=== PATIENT | male | born 1970 | race Caucasian/White ===

== ENCOUNTER 2017-01-11 20:47 | Emergency (ER) | payer BC, OTHER ==
[2017-01-11] MEDS ORDERED: Sodium Chloride 0.9% 2.5 ML Syringe FLUSH PRN (21:30)
[2017-01-11] MEDS ORDERED: Sodium Chloride 0.9% 10 ML Syringe FLUSH PRN (21:30)
--- NOTE | 2017-01-11 21:33 | EDM.PDOC ---
ED HPI GENERAL MEDICAL PROBLEM - General Chief Complaint: Neuro Symptoms/Deficits Stated Complaint: PT FEEL LIGHTHEADED AND DIZZY Time Seen by Provider: 01/11/17 21:23 - History of Present Illness INITIAL COMMENTS - FREE TEXT/NARRATIVE: HISTORY AND PHYSICAL: History of present illness: The patient is a 46-year-old male with a history of hypertension who follows the [facility] and presents with an episode of left shoulder pain and tingling to his left hand up his forearm. Patient states this started approximately an hour and 15 minutes ago and was not associated with any headache neck pain chest pain shortness of breath nausea or vomiting. He never had any trouble speaking thinking or swallowing and has no weakness in the left arm. The patient states that initially he just didn't feel right and he felt very lightheaded like he might pass out he was driving the car so he pulled to the side. He then felt the discomfort in his anterior left shoulder which did not radiate and the tingling in his left hand which radiated proximally to the level of his elbow but not further. He currently states that both the discomfort in his shoulder and the tingling in his left hand and forearm are improved. He had no other extremity pain or neurosensory changes and no other systemic complaints. The patient states it is similar episode happened to him about a year and a half ago and he was seen at another ER and told that everything was okay and did not followup with his provider at that time nor does she necessarily know about that episode. Patient had a normal day earlier and eat fine and had not systemic complaints. Patient currently does not feel lightheaded or dizzy but he does state that he doesn't feel quite right. Patient says he always has neck pain that radiates to her shoulders but does seem to be somewhat different. Review of systems: As per history of present illness and below otherwise all systems reviewed and negative. Past medical history: As per history of present illness and as reviewed below otherwise noncontributory. Surgical history: As per history of present illness and as reviewed below otherwise noncontributory. Social history: No reported history of drug or alcohol abuse. Family history: As per history of present illness and as reviewed below otherwise noncontributory. Physical exam: General: Well-developed well-nourished male who is nontoxic and speaking clearly and easily in the ED. Vital signs have been noted by me HEENT: Atraumatic, normocephalic, pupils reactive, negative for conjunctival pallor or scleral icterus, mucous membranes moist, throat clear, neck supple, nontender, trachea midline. EOMs intact. There are no midline step-offs and is defects of the cervical spine Lungs: Clear to auscultation, breath sounds equal bilaterally, chest nontender. Heart: S1S2, regular, negative for clicks, rubs, or JVD. Abdomen: Soft, nondistended, nontender. Negative for masses or hepatosplenomegaly. Negative for costovertebral tenderness. Pelvis: Stable nontender. Genitourinary: Deferred. Rectal: Deferred. Extremities: Atraumatic, negative for cords or calf pain. Neurovascular unremarkable. There is no palpable bony deformities or tenderness of the left shoulder and I am unable to elicit the pain on palpation Neuro: Awake, alert, oriented. Cranial nerves II through XII unremarkable. Cerebellum unremarkable. Motor and sensory unremarkable throughout. Exam nonfocal. He she had no drift any of his extremities and had no gross neurosensory changes in any of his extremities. [id number] strength are intact and I am unable to appreciate any tenderness when I palpate the hand or the forearm on the left side. Diagnostics: EKG CBC CMP INR TSH troponin orthostatic vital CT scan of the head chest x-ray and a stroke scale Therapeutics: IV O2 monitor, ASA NIHSS per nursing was =0 I discussed all testing results with the patient and have offered him admission as it is unclear what exactly is going on here. He absolutely refuses admission at this time and states he will followup with his provider at [facility] and I've advised him on reasons to return. He is aware of my concerns and accepts them and he is awake alert and competent. Impression: Lightheadedness with left upper extremity paresthesia etiology unclear improving , left shoulder pain stable Definitive disposition and diagnosis as appropriate pending reevaluation and review of above. - Related Data Allergies Allergy/AdvReac Type Severity Reaction Status Date / Time No Known Allergies Allergy Verified 01/11/17 20:56 Home Meds: Home Meds Lisinopril 10 mg PO DAILY 01/11/17 [History] Past Medical History HEENT History: Reports: None Cardiovascular History: Reports: Hypertension Respiratory History: Reports: None Gastrointestinal History: Reports: None Genitourinary History: Reports: None Musculoskeletal History: Reports: None Neurological History: Reports: None Psychiatric History: Reports: None Endocrine/Metabolic History: Reports: None Hematologic History: Reports: None Immunologic History: Reports: None Oncologic (Cancer) History: Reports: None Dermatologic History: Reports: None - Infectious Disease History Infectious Disease History: Reports: None Social & Family History - Family History Family Medical History: Noncontributory - Tobacco Use Smoking Status *Q: Current Every Day Smoker Years of Tobacco use: 1 Packs/Tins Daily: 20 - Caffeine Use Caffeine Use: Reports: Coffee, Energy drinks, Soda - Recreational Drug Use Recreational Drug Use: No ED ROS GENERAL - Review of Systems Review Of Systems: ROS reveals no pertinent complaints other than HPI. ED EXAM, GENERAL - Physical Exam Exam: See Below (See dictation) Course - Vital Signs Last Recorded V/S: Last Vital Signs Temp 36.6 C 01/11/17 22:26 Pulse 76 01/11/17 22:26 Resp 20 01/11/17 22:26 BP 145/93 H 01/11/17 22:26 Pulse Ox 94 L 01/11/17 22:26 Orthostatic Blood Pressure [ 132/75 Standing] Orthostatic Blood Pressure [ 127/83 Sitting] Orthostatic Blood Pressure [ 132/74 Supine] - Orders/Labs/Meds Orders: Active Orders 24 hr Category Date Time Status Cardiac Monitoring [RC] . DIRECTED Care 01/11/17 21:31 Active Communication Order [RC] STAT Care 01/11/17 21:32 Active EKG Documentation Completion [RC] STAT Care 01/11/17 21:31 Active Orthostatic Vital Signs [RC] ASDIRECTED Care 01/11/17 21:33 Active Oxygen Therapy, ED [RC] ASDIRECTED Care 01/11/17 21:31 Active Pulse Oximetry [RC] ASDIRECTED Care 01/11/17 21:31 Active Chest 1V Frontal [CR] Stat Exams 01/11/17 21:31 Taken Head wo Cont [CT] Stat Exams 01/11/17 21:31 Taken Sodium Chloride 0.9% [Saline Flush] Med 01/11/17 21:30 Active 10 ml FLUSH ASDIRECTED PRN Sodium Chloride 0.9% [Saline Flush] Med 01/11/17 21:30 Active 2.5 ml FLUSH ASDIRECTED PRN Saline Lock Insert [OM.PC] Stat Oth 01/11/17 21:31 Ordered Medication Orders Sodium Chloride (Saline Flush) 10 ml FLUSH ASDIRECTED PRN PRN Reason: Keep Vein Open Sodium Chloride (Saline Flush) 2.5 ml FLUSH ASDIRECTED PRN PRN Reason: Keep Vein Open Labs: Laboratory Tests 01/11/17 01/11/17 01/11/17 Range/Units 21:49 21:49 21:49 WBC 8.12 (4.0-11.0) K/uL RBC 5.00 (4.50-5.90) M/uL Hgb 15.2 (13.0-17.0) g/dL Hct 45.2 (38.0-50.0) % MCV 90.4 (80.0-98.0) fL MCH 30.4 (27.0-32.0) pg MCHC 33.6 (31.0-37.0) g/dL RDW Std Deviation 44.9 (28.0-62.0) fl RDW Coeff of Álvaro 14 (11.0-15.0) % Plt Count 264 (150-400) K/uL MPV 9.70 (7.40-12.00) fL Neut % (Auto) 55.6 (48.0-80.0) % Lymph % (Auto) 28.6 (16.0-40.0) % [place] % (Auto) 9.1 (0.0-15.0) % Eos % (Auto) 6.0 (0.0-7.0) % Baso % (Auto) 0.7 (0.0-1.5) % Neut # (Auto) 4.5 (1.4-5.7) K/uL Lymph # (Auto) 2.3 (0.6-2.4) K/uL [place] # (Auto) 0.7 (0.0-0.8) K/uL Eos # (Auto) 0.5 (0.0-0.7) K/uL Baso # (Auto) 0.1 (0.0-0.1) K/uL Nucleated RBC % 0.0 /100WBC Nucleated RBCs # 0 K/uL INR 0.98 (0.86-1.11) Sodium 139 (136-146) mmol/L Potassium 4.2 (3.5-5.1) mmol/L Chloride 110 (98-110) mmol/L Carbon Dioxide 20 L (21-31) mmol/L BUN 18 (6.0-23.0) mg/dL Creatinine 0.8 (0.6-1.5) mg/dL Est Cr Clr Drug Dosing 137.00 mL/min Estimated GFR (MDRD) > 60.0 ml/min Glucose 101 (60-110) mg/dL Calcium 9.1 (8.8-10.8) mg/dL Total Bilirubin 0.5 (0.1-1.5) mg/dL AST 23 (5-40) IU/L ALT 29 (8-54) IU/L Alkaline Phosphatase 74 (40-150) Troponin I (0.0-0.29) NG/ML Total Protein 7.1 (6.0-8.0) g/dL Albumin 4.1 (3.5-5.0) g/dL Globulin 3.0 (2.0-3.5) g/dL Albumin/Globulin Ratio 1.4 (1.3-2.8) TSH 3rd Generation 1.76 (0.47-5.0) uIU/mL 01/11/17 Range/Units 21:49 WBC (4.0-11.0) K/uL RBC (4.50-5.90) M/uL Hgb (13.0-17.0) g/dL Hct (38.0-50.0) % MCV (80.0-98.0) fL MCH (27.0-32.0) pg MCHC (31.0-37.0) g/dL RDW Std Deviation (28.0-62.0) fl RDW Coeff of Álvaro (11.0-15.0) % Plt Count (150-400) K/uL MPV (7.40-12.00) fL Neut % (Auto) (48.0-80.0) % Lymph % (Auto) (16.0-40.0) % [place] % (Auto) (0.0-15.0) % Eos % (Auto) (0.0-7.0) % Baso % (Auto) (0.0-1.5) % Neut # (Auto) (1.4-5.7) K/uL Lymph # (Auto) (0.6-2.4) K/uL [place] # (Auto) (0.0-0.8) K/uL Eos # (Auto) (0.0-0.7) K/uL Baso # (Auto) (0.0-0.1) K/uL Nucleated RBC % /100WBC Nucleated RBCs # K/uL INR (0.86-1.11) Sodium (136-146) mmol/L Potassium (3.5-5.1) mmol/L Chloride (98-110) mmol/L Carbon Dioxide (21-31) mmol/L BUN (6.0-23.0) mg/dL Creatinine (0.6-1.5) mg/dL Est Cr Clr Drug Dosing mL/min Estimated GFR (MDRD) ml/min Glucose (60-110) mg/dL Calcium (8.8-10.8) mg/dL Total Bilirubin (0.1-1.5) mg/dL AST (5-40) IU/L ALT (8-54) IU/L Alkaline Phosphatase (40-150) Troponin I < 0.10 (0.0-0.29) NG/ML Total Protein (6.0-8.0) g/dL Albumin (3.5-5.0) g/dL Globulin (2.0-3.5) g/dL Albumin/Globulin Ratio (1.3-2.8) TSH 3rd Generation (0.47-5.0) uIU/mL Meds: Medications Generic Name Dose Route Start Last Admin Trade Name Freq PRN Reason Stop Dose Admin Sodium Chloride 10 ml 01/11/17 21:30 Saline Flush FLUSH ASDIRECTED PRN Keep Vein Open Sodium Chloride 2.5 ml 01/11/17 21:30 Saline Flush FLUSH ASDIRECTED PRN Keep Vein Open Discontinued Medications Generic Name Dose Route Start Last Admin Trade Name Freq PRN Reason Stop Dose Admin Aspirin 325 mg 01/11/17 22:39 Aspirin PO 01/11/17 22:40 ONETIME ONE Departure - Departure Time of Disposition: 22:52 Disposition: Home, Self-Care 01 Condition: good Clinical Impression: Paresthesia, Lightheadedness Shoulder pain Qualifiers: Laterality: left Chronicity: unspecified Qualified Code(s): M25.512 - Pain in left shoulder - Discharge Information Forms: ED Department Discharge Additional Instructions: The following information is given to patients seen in the emergency department who are being discharged to home. This information is to outline your options for follow-up care. We provide all patients seen in our emergency department with a follow-up referral. The need for follow-up, as well as the timing and circumstances, are variable depending upon the specifics of your emergency department visit. If you don't have a primary care physician on staff, we will provide you with a referral. We always advise you to contact your personal physician following an emergency department visit to inform them of the circumstance of the visit and for follow-up with them and/or the need for any referrals to a consulting specialist. The emergency department will also refer you to a specialist when appropriate. This referral assures that you have the opportunity for followup care with a specialist. All of these measure are taken in an effort to provide you with optimal care, which includes your followup. Under all circumstances we always encourage you to contact your private physician who remains a resource for coordinating your care. When calling for followup care, please make the office aware that this follow-up is from your recent emergency room visit. If for any reason you are refused follow-up, please contact the [facility] emergency department at and ask to speak to the emergency department charge nurse. [address] [place] [address] [facility] Primary care- Internal Medicine and Family [address] [id number] Please call and followup with your provider as we discussed and return to ER as needed and as discussed - My Orders Last 24 Hours: My Active Orders 01/11/17 21:30 Sodium Chloride 0.9% [Saline Flush] 10 ml FLUSH ASDIRECTED PRN Sodium Chloride 0.9% [Saline Flush] 2.5 ml FLUSH ASDIRECTED PRN 01/11/17 21:31 Cardiac Monitoring [RC] . DIRECTED EKG Documentation Completion [RC] STAT Oxygen Therapy, ED [RC] ASDIRECTED Pulse Oximetry [RC] ASDIRECTED Chest 1V Frontal [CR] Stat Head wo Cont [CT] Stat Saline Lock Insert [OM.PC] Stat 01/11/17 21:32 Communication Order [RC] STAT 01/11/17 21:33 Orthostatic Vital Signs [RC] ASDIRECTED - Assessment/Plan Last 24 Hours: My Active Orders 01/11/17 21:30 Sodium Chloride 0.9% [Saline Flush] 10 ml FLUSH ASDIRECTED PRN Sodium Chloride 0.9% [Saline Flush] 2.5 ml FLUSH ASDIRECTED PRN 01/11/17 21:31 Cardiac Monitoring [RC] . DIRECTED EKG Documentation Completion [RC] STAT Oxygen Therapy, ED [RC] ASDIRECTED Pulse Oximetry [RC] ASDIRECTED Chest 1V Frontal [CR] Stat Head wo Cont [CT] Stat Saline Lock Insert [OM.PC] Stat 01/11/17 21:32 Communication Order [RC] STAT 01/11/17 21:33 Orthostatic Vital Signs [RC] ASDIRECTED
[2017-01-11 22:17] LABS: CHLORIDE,CL 110 mmol/L (98-110); SODIUM,NA 139 mmol/L (136-146)
[2017-01-11] MEDS ORDERED: Aspirin 325 MG Tab PO ONE (22:39)
[2017-01-11 23:18] VITALS: BP 156/89
--- NOTE | 2017-01-12 16:21 | CR ---
EXAM DATE: 01/11/17 PATIENT'S AGE: 46 Patient: SARATH PERALTA Facility: [place], [place] Site . Site : 1970 Study: XRay Chest [id number]/9/2017 10:06:53 PM Ordering Physician: Lorna Lugo Final Report: INDICATION: Shortness of breath TECHNIQUE: Chest radiograph 1 view COMPARISON: None FINDINGS: Cardiovascular and mediastinum: The heart silhouette is normal in size and morphology. The mediastinum is normal in appearance. Lungs and pleural spaces: Both lungs are unremarkable in appearance. No sign of pleural effusion seen. No pneumothorax is identified. Bones and soft tissues: No significant findings. IMPRESSION: 1. Negative one-view chest. Dictated by Mohit Mata MD @ 01/11/2017 10:33:37 PM Dictated by: Mohit Mata MD @ 01/11/2017 22:33:45 (Electronic Signature) Report Signed by Proxy. KENDY
--- NOTE | 2017-01-12 16:22 | CT ---
EXAM DATE: 01/11/17 PATIENT'S AGE: 46 Patient: SARATH PERALTA Facility: [place], [place] Site . Site : 1970 Study: CT Head [id number]/9/2017 10:12:19 PM Ordering Physician: Lorna Lugo Final Report: INDICATION: Dizziness. TECHNIQUE: CT head without i.v. contrast. COMPARISON: None FINDINGS: CSF spaces: Within normal limits for age. Brain parenchyma: The brain parenchyma is normal in appearance with preservation of the young-white differentiation. No sign of mass, hemorrhage, or midline shift seen. Skull base and calvarium: The visualized paranasal sinuses are well aerated. The mastoid air cells are clear. The visualized orbits are grossly unremarkable. No skull fractures are seen. IMPRESSION: 1. Negative noncontrast head CT. Dictated by Mohit Mata MD @ 01/11/2017 10:37:09 PM Dictated by: Mohit Mata MD @ 01/11/2017 22:37:15 (Electronic Signature) Report Signed by Proxy. [facility]
== END 2017-01-11 23:05 | disposition home or self-care (01) ==
LOC: MW.ED 20:47
DX: M25.512 Pain in left shoulder (principal); I10 Essential (primary) hypertension; R20.9 Unspecified disturbances of skin sensation; R42 Dizziness and giddiness; F17.210 Nicotine dependence, cigarettes, uncomplicated; Z79.899 Other long term (current) drug therapy
CPT/HCPCS: 36415; 70450; 70450-26; 71010; 71010-26; 80053; 84443; 84484; 85025; 85610; 93005; 99283; 99285-25

== ENCOUNTER 2017-02-01 08:57 | Emergency (ER) | payer OTHER ==
[2017-02-01] MEDS ORDERED: Ondansetron 4 MG/2 ML SDV IVPUSH ONE (09:07)
[2017-02-01] MEDS ORDERED: Ketorolac 30 MG/ML SDV IVPUSH ONE (09:07)
[2017-02-01] MEDS ORDERED: Sodium Chloride 0.9% 1,000 ML IV ONE (09:07)
--- NOTE | 2017-02-01 09:09 | EDM.PDOC ---
ED HPI GENERAL MEDICAL PROBLEM - General Chief Complaint: Headache Stated Complaint: LIGHTHEADED/DIZZY Time Seen by Provider: 02/01/17 09:08 Source of Information: Reports: Patient - History of Present Illness INITIAL COMMENTS - FREE TEXT/NARRATIVE: HISTORY AND PHYSICAL: History of present illness: [] Patient has been in her multiple episodes of dizziness He has been to [employer] over the last 4 days and drinking heavily on a strip, has mild dehydration secondary to this which may contribute to symptoms today No fever nausea vomiting chills sweats no chest pain shortness breath or palpitation he does complain of slight headache 2/10 diffuse and some neck pain he rates 1/10 is full range of motion of his neck neck is supple no meningeal sign Review of systems: As per history of present illness and below otherwise all systems reviewed and negative. Past medical history: As per history of present illness and as reviewed below otherwise noncontributory. Surgical history: As per history of present illness and as reviewed below otherwise noncontributory. Social history: No reported history of drug or alcohol abuse. Family history: As per history of present illness and as reviewed below otherwise noncontributory. Physical exam: HEENT: Atraumatic, normocephalic, pupils reactive, negative for conjunctival pallor or scleral icterus, mucous membranes moist, throat clear, neck supple, nontender, trachea midline. No meningeal sign Lungs: Clear to auscultation, breath sounds equal bilaterally, chest nontender. Heart: S1S2, regular, negative for clicks, rubs, or JVD. Abdomen: Soft, nondistended, nontender. Negative for masses or hepatosplenomegaly. Negative for costovertebral tenderness. Pelvis: Stable nontender. Genitourinary: Deferred. Rectal: Deferred. Extremities: Atraumatic, negative for cords or calf pain. Neurovascular unremarkable. Neuro: Awake, alert, oriented. Cranial nerves II through XII unremarkable. Cerebellum unremarkable. Motor and sensory unremarkable throughout. Exam nonfocal. Diagnostics: [] Lab as below Head CT without on file from 2 weeks ago EKG Therapeutics: [] Liter normal saline bolus Zofran 8 mg IV Toradol 30 mg IV Impression: [] Headache Dizziness Mild dehydration Definitive disposition and diagnosis as appropriate pending reevaluation and review of above. - Related Data Allergies Allergy/AdvReac Type Severity Reaction Status Date / Time No Known Allergies Allergy Verified 01/11/17 20:56 Home Meds: Home Meds Lisinopril 10 mg PO DAILY 01/11/17 [History] Past Medical History HEENT History: Reports: None Cardiovascular History: Reports: Hypertension Respiratory History: Reports: None Gastrointestinal History: Reports: None Genitourinary History: Reports: None Musculoskeletal History: Reports: None Neurological History: Reports: None Psychiatric History: Reports: None Endocrine/Metabolic History: Reports: None Hematologic History: Reports: None Immunologic History: Reports: None Oncologic (Cancer) History: Reports: None Dermatologic History: Reports: None - Infectious Disease History Infectious Disease History: Reports: None Social & Family History - Family History Family Medical History: Noncontributory - Tobacco Use Smoking Status *Q: Current Every Day Smoker Years of Tobacco use: 1 Packs/Tins Daily: 20 - Caffeine Use Caffeine Use: Reports: Coffee, Energy Drinks, Soda - Recreational Drug Use Recreational Drug Use: No ED ROS GENERAL - Review of Systems Review Of Systems: ROS reveals no pertinent complaints other than HPI. ED EXAM, GENERAL - Physical Exam Exam: See Below Course - Vital Signs Last Recorded V/S: Last Vital Signs Temp 36.4 C 02/01/17 09:12 Pulse 80 02/01/17 09:12 Resp 18 02/01/17 09:12 BP 147/77 H 02/01/17 09:12 Pulse Ox 96 02/01/17 09:12 Orthostatic Blood Pressure [ 139/92 Standing] Orthostatic Blood Pressure [ 122/84 Sitting] Orthostatic Blood Pressure [ 136/84 Supine] - Orders/Labs/Meds Orders: Active Orders 24 hr Category Date Time Status EKG Documentation Completion [RC] STAT Care 02/01/17 09:12 Active Orthostatic Vital Signs [RC] ASDIRECTED Care 02/01/17 09:13 Active Labs: Laboratory Tests 02/01/17 02/01/17 02/01/17 Range/Units 09:23 09:23 09:23 WBC 11.54 H (4.0-11.0) K/uL RBC 5.34 (4.50-5.90) M/uL Hgb 16.3 (13.0-17.0) g/dL Hct 48.6 (38.0-50.0) % MCV 91.0 (80.0-98.0) fL MCH 30.5 (27.0-32.0) pg MCHC 33.5 (31.0-37.0) g/dL RDW Std Deviation 45.4 (28.0-62.0) fl RDW Coeff of Álvaro 14 (11.0-15.0) % Plt Count 273 (150-400) K/uL MPV 9.80 (7.40-12.00) fL Neut % (Auto) 68.1 (48.0-80.0) % Lymph % (Auto) 19.2 (16.0-40.0) % [place] % (Auto) 7.5 (0.0-15.0) % Eos % (Auto) 4.9 (0.0-7.0) % Baso % (Auto) 0.3 (0.0-1.5) % Neut # (Auto) 7.9 H (1.4-5.7) K/uL Lymph # (Auto) 2.2 (0.6-2.4) K/uL Gonzales # (Auto) 0.9 H (0.0-0.8) K/uL Eos # (Auto) 0.6 (0.0-0.7) K/uL Baso # (Auto) 0.0 (0.0-0.1) K/uL Nucleated RBC % 0.0 /100WBC Nucleated RBCs # 0 K/uL Sodium 137 (136-146) mmol/L Potassium 4.1 (3.5-5.1) mmol/L Chloride 106 (98-110) mmol/L Carbon Dioxide 22 (21-31) mmol/L BUN 16 (6.0-23.0) mg/dL Creatinine 0.8 (0.6-1.5) mg/dL Est Cr Clr Drug Dosing 137.06 mL/min Estimated GFR (MDRD) > 60.0 ml/min Glucose 111 H (60-110) mg/dL Calcium 8.9 (8.8-10.8) mg/dL Total Bilirubin 0.4 (0.1-1.5) mg/dL AST 17 (5-40) IU/L ALT 24 (8-54) IU/L Alkaline Phosphatase 76 (40-150) Troponin I < 0.10 (0.0-0.29) NG/ML Total Protein 7.2 (6.0-8.0) g/dL Albumin 4.3 (3.5-5.0) g/dL Globulin 2.9 (2.0-3.5) g/dL Albumin/Globulin Ratio 1.5 (1.3-2.8) Urine Color Urine Appearance Urine pH (5.0-8.0) Ur Specific [place] (1.001-1.035) Urine Protein (NEGATIVE) mg/dL Urine Glucose (UA) (NEGATIVE) mg/dL Urine Ketones (NEGATIVE) mg/dL Urine Occult Blood (NEGATIVE) Urine Nitrite (NEGATIVE) Urine Bilirubin (NEGATIVE) Urine Urobilinogen (<2.0) EU/dL Ur Leukocyte Esterase (NEGATIVE) Urine RBC (0-2/HPF) Urine WBC (0-5/HPF) Ur Epithelial Cells (NONE-FEW) Urine Bacteria (NEGATIVE) 02/01/17 Range/Units 10:00 WBC (4.0-11.0) K/uL RBC (4.50-5.90) M/uL Hgb (13.0-17.0) g/dL Hct (38.0-50.0) % MCV (80.0-98.0) fL MCH (27.0-32.0) pg MCHC (31.0-37.0) g/dL RDW Std Deviation (28.0-62.0) fl RDW Coeff of Álvaro (11.0-15.0) % Plt Count (150-400) K/uL MPV (7.40-12.00) fL Neut % (Auto) (48.0-80.0) % Lymph % (Auto) (16.0-40.0) % [place] % (Auto) (0.0-15.0) % Eos % (Auto) (0.0-7.0) % Baso % (Auto) (0.0-1.5) % Neut # (Auto) (1.4-5.7) K/uL Lymph # (Auto) (0.6-2.4) K/uL [place] # (Auto) (0.0-0.8) K/uL Eos # (Auto) (0.0-0.7) K/uL Baso # (Auto) (0.0-0.1) K/uL Nucleated RBC % /100WBC Nucleated RBCs # K/uL Sodium (136-146) mmol/L Potassium (3.5-5.1) mmol/L Chloride (98-110) mmol/L Carbon Dioxide (21-31) mmol/L BUN (6.0-23.0) mg/dL Creatinine (0.6-1.5) mg/dL Est Cr Clr Drug Dosing mL/min Estimated GFR (MDRD) ml/min Glucose (60-110) mg/dL Calcium (8.8-10.8) mg/dL Total Bilirubin (0.1-1.5) mg/dL AST (5-40) IU/L ALT (8-54) IU/L Alkaline Phosphatase (40-150) Troponin I (0.0-0.29) NG/ML Total Protein (6.0-8.0) g/dL Albumin (3.5-5.0) g/dL Globulin (2.0-3.5) g/dL Albumin/Globulin Ratio (1.3-2.8) Urine Color YELLOW Urine Appearance CLEAR Urine pH 5.5 (5.0-8.0) Ur Specific [place] 1.020 (1.001-1.035) Urine Protein NEGATIVE (NEGATIVE) mg/dL Urine Glucose (UA) NEGATIVE (NEGATIVE) mg/dL Urine Ketones NEGATIVE (NEGATIVE) mg/dL Urine Occult Blood NEGATIVE (NEGATIVE) Urine Nitrite NEGATIVE (NEGATIVE) Urine Bilirubin NEGATIVE (NEGATIVE) Urine Urobilinogen 0.2 (<2.0) EU/dL Ur Leukocyte Esterase NEGATIVE (NEGATIVE) Urine RBC NONE SEEN (0-2/HPF) Urine WBC NONE SEEN (0-5/HPF) Ur Epithelial Cells RARE (NONE-FEW) Urine Bacteria NOT SEEN (NEGATIVE) Meds: Medications Discontinued Medications Generic Name Dose Route Start Last Admin Trade Name Freq PRN Reason Stop Dose Admin Sodium Chloride 1,000 mls @ 999 mls/hr 02/01/17 09:07 02/01/17 09:23 Normal Saline IV 02/01/17 10:07 999 mls/hr STAT ONE Administration Ketorolac Tromethamine 30 mg 02/01/17 09:07 02/01/17 09:23 Toradol IVPUSH 02/01/17 09:08 30 mg ONETIME ONE Administration Ondansetron HCl 8 mg 02/01/17 09:07 02/01/17 09:24 Zofran IVPUSH 02/01/17 09:08 8 mg ONETIME ONE Administration Departure - Departure Time of Disposition: 10:17 Disposition: Home, Self-Care 01 Condition: good Clinical Impression: Dehydration - Discharge Information Forms: ED Department Discharge Additional Instructions: The following information is given to patients seen in the emergency department who are being discharged to home. This information is to outline your options for follow-up care. We provide all patients seen in our emergency department with a follow-up referral. The need for follow-up, as well as the timing and circumstances, are variable depending upon the specifics of your emergency department visit. If you don't have a primary care physician on staff, we will provide you with a referral. We always advise you to contact your personal physician following an emergency department visit to inform them of the circumstance of the visit and for follow-up with them and/or the need for any referrals to a consulting specialist. The emergency department will also refer you to a specialist when appropriate. This referral assures that you have the opportunity for follow-up care with a specialist. All of these measure are taken in an effort to provide you with optimal care, which includes your follow-up. Under all circumstances we always encourage you to contact your private physician who remains a resource for coordinating your care. When calling for follow-up care, please make the office aware that this follow-up is from your recent emergency room visit. If for any reason you are refused follow-up, please contact the [facility] emergency department at and asked to speak to the emergency department charge nurse. - My Orders Last 24 Hours: My Active Orders 02/01/17 09:12 EKG Documentation Completion [RC] STAT 02/01/17 09:13 Orthostatic Vital Signs [RC] ASDIRECTED - Assessment/Plan Last 24 Hours: My Active Orders 02/01/17 09:12 EKG Documentation Completion [RC] STAT 02/01/17 09:13 Orthostatic Vital Signs [RC] ASDIRECTED
[2017-02-01 10:00] LABS: CHLORIDE,CL 106 mmol/L (98-110); SODIUM,NA 137 mmol/L (136-146)
[2017-02-01 10:43] VITALS: BP 136/88
== END 2017-02-01 11:01 | disposition home or self-care (01) ==
LOC: MW.ED 08:57
DX: E86.0 Dehydration (principal); I10 Essential (primary) hypertension; F17.210 Nicotine dependence, cigarettes, uncomplicated; Z79.899 Other long term (current) drug therapy
CPT/HCPCS: 36415; 80053; 81001; 84484; 85025; 93005; 96361; 96374; 96375; 99284; J1885; J2405; J7040

== ENCOUNTER 2023-01-06 05:15 | Emergency (ER) | payer OTHER ==
[2023-01-06] MEDS ORDERED: Sodium Chloride 0.9% 1,000 ML IV ONE (05:33)
[2023-01-06] MEDS ORDERED: Aspirin 81 MG Tab.Chew PO ONE (05:33)
[2023-01-06] MEDS ORDERED: Famotidine 20 MG/2 ML SDV IVPUSH ONE (05:33)
[2023-01-06] MEDS ORDERED: Sodium Chloride 0.9% 2.5 ML Syringe FLUSH PRN (05:33)
[2023-01-06] MEDS ORDERED: Morphine 4 MG/ML Syringe IVPUSH ONE (05:33)
[2023-01-06] MEDS ORDERED: Ondansetron 4 MG/2 ML SDV IVPUSH ONE (05:33)
[2023-01-06] MEDS ORDERED: Sodium Chloride 0.9% 10 ML Syringe FLUSH PRN (05:33)
[2023-01-06] MEDS ORDERED: Nitroglycerin 0.4 MG Tab.SL SL PRN (05:35)
[2023-01-06] MEDS ORDERED: Heparin Sodium 5,000 Units/ML Vial IVPUSH ONE (05:36)
[2023-01-06] MEDS ORDERED: LORazepam 2 MG/ML SDV IVPUSH ONE (05:38)
[2023-01-06] MEDS ORDERED: Heparin Sodium/0.45% NaCl 500 ML IV SCH (05:45)
[2023-01-06] MEDS ORDERED: Tenecteplase 50 MG Kit IV STA (05:49)
[2023-01-06 05:58] LABS: BASOPHILS PERCENT AUTO 0.2 % (0.0-1.5); EOSINOPHILS ABSOLUTE AUTO 0.2 K/uL (0.0-0.7); EOSINOPHILS PERCENT AUTO 1.2 % (0.0-7.0); HEMATOCRIT 45.7 % (38.0-50.0); HEMOGLOBIN 15.8 g/dL (13.0-17.0); LYMPHOCYTES ABSOLUTE AUTO 1.4 K/uL (0.6-2.4); LYMPHOCYTES PERCENT AUTO 10.6 % (16.0-40.0); MEAN CORPUSCULAR HEMOGLOBIN 30.6 pg (27.0-32.0); MEAN CORPUSCULAR HGB CONC 34.6 g/dL (31.0-37.0); MEAN CORPUSCULAR VOLUME 88.6 fL (80.0-98.0); MONOCYTES ABSOLUTE AUTO 1.6 K/uL (0.0-0.8); MONOCYTES PERCENT AUTO 12.2 % (0.0-15.0); NEUTROPHILS ABSOLUTE AUTO 9.9 K/uL (1.4-5.7); NEUTROPHILS PERCENT AUTO 75.8 % (48.0-80.0); NRBC ABSOLUTE 0 K/uL; PLATELET COUNT,PLT 220 K/uL (150-400); RED BLOOD CELL COUNT 5.16 M/uL (4.50-5.90); WHITE BLOOD CELL COUNT,WBC 13.03 K/uL (4.0-11.0)
[2023-01-06 06:06] LABS: INR 1.07 (0.86-1.11); PTT,PARTIAL THROMBOPLSTIN TIME 32.9 SEC (23.9-30.7)
[2023-01-06 06:19] LABS: A/G RATIO 0.9 (0.9-1.6); ALANINE AMINOTRANSFERASE,ALT 48 IU/L (14-63); ALBUMIN 3.4 g/dL (3.4-5.0); ALKALINE PHOSPHATASE 87 U/L (46-116); ASPARTATE AMNIOTRANSFERASE,AST 31 IU/L (15-37); BILIRUBIN TOTAL 0.5 mg/dL (0.2-1.0); BLOOD UREA NITROGEN,BUN 16 mg/dL (7.0-18.0); CALCIUM 7.9 mg/dL (8.5-10.1); CARBON DIOXIDE,CO2 22.8 mmol/L (21.0-32.0); CHLORIDE,CL 103 mmol/L (98-107); EST CRCL DRUG DOSING (CG) 105.63 mL/min; GLUCOSE RANDOM 127 mg/dL (74-106); LIPASE 67 U/L (73-393); POTASSIUM,K 4.3 mmol/L (3.5-5.1); PROTEIN TOTAL,TP 7.2 g/dL (6.4-8.2); SODIUM,NA 137 mmol/L (136-148); TSH ULTRASENSITIVE 3.12 uIU/mL (0.36-3.74)
[2023-01-06 06:21] LABS: ESTIMATED GFR 92 mL/min (>60)
[2023-01-06 06:22] LABS: ETHANOL BLOOD MEDICAL < 3.0 mg/dL
[2023-01-06 08:11] VITALS: BP 153/75; PULSE 115
== END 2023-01-06 07:45 ==
LOC: MW.ED 05:15
DX: I21.3 ST elevation (STEMI) myocardial infarction of unspecified site (principal); I10 Essential (primary) hypertension; Z79.899 Other long term (current) drug therapy
CPT/HCPCS: 36415; 71045; 80053; 80307; 83690; 83735; 83880; 84443; 84484; 85025; 85610; 85730; 93005; 96365; 96375; 99285; A9270; J1644; J2060; J2270; J2405; J3101; J3490; J7030; 93010; 99291

== ENCOUNTER 2023-03-16 11:17 | Day surgery (SDC) | payer OTHER ==
[~2023-03-16 11:17] MED LIST: Lactated Ringers 1,000 ML IV SCH
[2023-03-16] MEDS ORDERED: Lidocaine 2% 5 ML SDV ONE (11:40)
[2023-03-16] MEDS ORDERED: fentaNYL 100 MCG/2 ML SDV ONE (11:41)
[2023-03-16] MEDS ORDERED: Propofol 200 MG/20 ML SDV ONE ×3 (11:41→13:29)
[2023-03-16 14:22] VITALS: BP 153/94; PULSE 71
== END 2023-03-16 14:35 | disposition home or self-care (01) ==
LOC: MW.SDS 11:17
PROVIDERS: ATTEND Surgery
DX: R19.5 Other fecal abnormalities (principal); D12.0 Benign neoplasm of cecum; D12.3 Benign neoplasm of transverse colon; K62.1 Rectal polyp; K64.9 Unspecified hemorrhoids; I10 Essential (primary) hypertension; Z79.82 Long term (current) use of aspirin; Z79.899 Other long term (current) drug therapy; F17.210 Nicotine dependence, cigarettes, uncomplicated
CPT/HCPCS: 45380; 45385; J2704; J3010; J7120; 00811; J3490

== ENCOUNTER 2025-05-10 13:38 | Emergency (ER) | payer OTHER ==
[2025-05-10] MEDS: Diphtheria,Pertussis(Acell),Tetanus Vaccine 0.5 ML Syringe IM ONE (13:57)
[2025-05-10] MEDS: Acetaminophen/oxyCODONE 325-10 MG Tab PO ONE (14:26)
[2025-05-10 14:48] VITALS: BP 159/99; PULSE 89
== END 2025-05-10 14:49 | disposition home or self-care (01) ==
LOC: MW.ED 13:38
DX: S61.101A Unspecified open wound of right thumb with damage to nail, initial encounter (principal); I10 Essential (primary) hypertension; E66.9 Obesity, unspecified; Z79.899 Other long term (current) drug therapy; W45.8XXA Other foreign body or object entering through skin, initial encounter
CPT/HCPCS: 73140-26-F7; 73140-F7; 90471; 90715; 99283; 99283-25

== ENCOUNTER 2025-05-11 06:39 | Emergency (ER) | payer OTHER ==
[2025-05-11 07:43] VITALS: BP 154/91; PULSE 80
== END 2025-05-11 07:47 | disposition left against medical advice (07) ==
LOC: MW.ED 06:39
DX: Z48.00 Encounter for change or removal of nonsurgical wound dressing (principal)
CPT/HCPCS: 99281